=== PATIENT | female | born 1960 | race Caucasian/White ===

== ENCOUNTER 2022-08-15 05:43 | Inpatient (IN) ==
--- NOTE | 2022-08-03 09:52 | PAT Medication Instructions ---
Medication Instructions Date of Service August 03, 2022 Home Medications aspirin 325 mg tablet 325 mg PO QAM atorvastatin 40 mg tablet 40 mg PO HS calcium phosphate,dibasic 77 mg-vitamin D3 400 unit tablet 1 tab PO QAM clindamycin HCl 300 mg capsule 600 mg PO UD clopidogrel 75 mg tablet (Plavix) 75 mg PO QAM eszopiclone 2 mg tablet (Lunesta) 2 mg PO HS PRN Sleep ferrous sulfate 325 mg (65 mg iron) tablet (FeroSul) 325 mg PO QAM furosemide 20 mg tablet 20 mg PO QAM glipizide 5 mg tablet 5 mg PO BID losartan 50 mg tablet 50 mg PO QAM metoprolol tartrate 100 mg tablet 100 mg PO HS omega-3 fatty acids-vitamin E 1,000 mg capsule 2 cap PO BID pantoprazole 40 mg tablet,delayed release 40 mg PO QAM semaglutide 1 mg/dose (2 mg/1.5 mL) subcutaneous pen injector (Ozempic) 1 mg subcut WK spironolactone 50 mg tablet 50 mg PO QAM Continue as directed semaglutide 1 mg/dose (2 mg/1.5 mL) subcutaneous pen injector (Ozempic) 1 mg subcut WK clindamycin HCl 300 mg capsule 600 mg PO UD (prior to dental procedures) ASK your prescriber and surgeon aspirin 325 mg tablet 325 mg PO QAM clopidogrel 75 mg tablet (Plavix) 75 mg PO QAM DO NOT take the morning of surgery calcium phosphate,dibasic 77 mg-vitamin D3 400 unit tablet 1 tab PO QAM ferrous sulfate 325 mg (65 mg iron) tablet (FeroSul) 325 mg PO QAM furosemide 20 mg tablet 20 mg PO QAM glipizide 5 mg tablet 5 mg PO BID losartan 50 mg tablet 50 mg PO QAM spironolactone 50 mg tablet 50 mg PO QAM Take morning of surgery With a small sip of water, OTHERWISE NOTHING TO EAT OR DRINK AFTER MIDNIGHT: pantoprazole 40 mg tablet,delayed release 40 mg PO QAM Take evening before surgery atorvastatin 40 mg tablet 40 mg PO HS eszopiclone 2 mg tablet (Lunesta) 2 mg PO HS PRN Sleep (if needed) glipizide 5 mg tablet 5 mg PO BID metoprolol tartrate 100 mg tablet 100 mg PO HS Other Notes If you have any questions please call us at [phone] or [phone] or [phone] or [phone]
--- NOTE | 2022-08-08 09:01 | Anesthesiology Consultation ---
Date of Service August 08, 2022 Assessment & Plan (1) Encounter for pre-operative examination: - COVID screening: Per assessment on 08/08: No known COVID-19 positive contacts or current COVID-19 related symptoms. Travel screen negative. Patient vaccinated. At surgeon discretion if preop Covid testing being done. - Check BSG AM DOS - ASA/plavix instructions per surgeon/prescriber Chart Review Chart Review: Acceptable Risk for Surgery and Patient seen in Pre Admission Testing Teaching & Discussion Pre-Anesthesia Teaching/Discussion Notes: Instructed NPO after midnight before surgery,except medications with 15 cc of water. Medication instructions provided according to the PAT guidelines. History Surgery Operation Date: 08/15/22 08:00 Proposed Procedures p Right Transcarotid Artery Revascularization - Mane Wilkes MD Height/Weight Height: 5 ft 3 in Weight: 96.4 kg Allergies Allergy/AdvReac Type Severity Reaction Status Date / Time Cephalosporins Allergy Unknown Unknown Verified 08/02/22 14:37 Penicillins Allergy Unknown Unknown Verified 08/02/22 14:37 Medications Home Medications Medication Instructions Recorded Confirmed Last Taken aspirin 325 mg tablet 325 mg PO QAM 08/02/22 08/02/22 Unknown atorvastatin 40 mg tablet 40 mg PO HS 08/02/22 08/02/22 Unknown calcium phosphate,dibasic 77 1 tab PO QAM 08/02/22 08/02/22 Unknown mg-vitamin D3 400 unit tablet clindamycin HCl 300 mg capsule 600 mg PO UD 08/02/22 08/02/22 Unknown clopidogrel 75 mg tablet (Plavix) 75 mg PO QAM 08/02/22 08/02/22 Unknown eszopiclone 2 mg tablet (Lunesta) 2 mg PO HS PRN Sleep 08/02/22 08/02/22 Unknown ferrous sulfate 325 mg (65 mg 325 mg PO QAM 08/02/22 08/02/22 Unknown iron) tablet (FeroSul) furosemide 20 mg tablet 20 mg PO QAM 08/02/22 08/02/22 Unknown glipizide 5 mg tablet 5 mg PO BID 08/02/22 08/02/22 Unknown losartan 50 mg tablet 50 mg PO QAM 08/02/22 08/02/22 Unknown metoprolol tartrate 100 mg tablet 100 mg PO HS 08/02/22 08/02/22 Unknown omega-3 fatty acids-vitamin E 2 cap PO BID 08/02/22 08/02/22 Unknown 1,000 mg capsule pantoprazole 40 mg tablet,delayed 40 mg PO QAM 08/02/22 08/02/22 Unknown release semaglutide 1 mg/dose (2 mg/1.5 1 mg subcut WK 08/02/22 08/02/22 Unknown mL) subcutaneous pen injector (Ozempic) spironolactone 50 mg tablet 50 mg PO QAM 08/02/22 08/02/22 Unknown Past Medical History Medical History Carotid artery stenosis 75% proximal CARL stenosis, 56% proximal LICA stenosis per 05/2022 CTA neck Diabetes GERD (gastroesophageal reflux disease) Goiter HTN (hypertension) Exercise / Class Metabolic Activity II 4-5 Yardwork/Stairs/Walk up hill Past Family History Family History Other No family history of adverse response to anesthesia Past Surgical History Surgical History History of bilateral knee replacement History of open reduction and internal fixation (ORIF) procedure right leg, right arm Hx of cholecystectomy Hx of colonoscopy Hx of foot surgery right, bone spurs Hx of fusion of cervical spine C3-5 Hx of hysterectomy Hx of rotator cuff surgery right Past Anesthesia History No Hx of Anesthesia Complications and No Family Hx of Anesthesia Complications *Preop nausea prior to previous knee surgery* History of PONV No Hx of PONV and No Hx of Motion Sickness Social History Smoking Status: Never smoker Do You Dip or Chew Tobacco: No Hx Alcohol Use: Yes alcohol intake frequency: holidays/special occasions only Hx Substance Use: No substance use type: does not use Review of Systems Patient denies chest pain, shortness of breath, dyspnea on exertion, fever, chills, cough, wheezing, palpitations. Physical Exam Vital Signs VITALS BP 127/83 P 80 TEMP 98.1 SP02 97%RA RESP 16 PHYSICAL Full cervical extension range of motion. Full TMJ range of motion. TMD 4 finger breaths Mallampati Score 2 Dentition: several missing molars, + caps Lungs: clear throughout to auscultation Cardiac: regular rate and rhythm, no murmurs noted Spine: normal Carotid arteries: negative bruit Extremities: RLE swelling (chronic issue s/p surgery per patient) Lab Results Anesthesia Preop Results Results Anesthesia Widget: PT 10.1 Seconds (9.0-12.0) 08/08/22 PTT 25.1 Seconds (21.0-31.0) 08/08/22 INR 0.9 (0.9-1.1) 08/08/22 Blood Type O Positive 08/08/22 Antibody Screen NEGATIVE 08/08/22 Testing Laboratory Results 07/28/22 WBC 8.9 H/H 15.0/45.4 PLATELETS 437 SODIUM 137 POTASSIUM 4.7 CHLORIDE 102 CO2 29 BUN 30 CREATININE 1.4 GLUCOSE 97 HGBA1C 6.0% Electrocardiogram Date: 10/15/21 NSR at 64bpm. Moderate voltage criteria for LVH. Chest X-Ray Date: 10/15/21 No acute cardiac or pulmonary disease and no change from the comparison examination. ACDF hardware noted in the lower cervical spine. Echocardiogram Date: 06/11/20 EF 55-60%. No regional motion abnormality. No significant valvular disease. Stress Test Date: 06/11/20 Type: nuclear Based upon EKG criteria, this test is negative. Based upon nuclear imaging findings, there is no evidence of myocardial ischemia or infarction. Study is "normal " Other Testing Carotid ultrasound (06/07/22) CARL greater than 70% stenosis. LICA less than 50% stenosis. Neck CTA (06/19/22) 75% proximal CARL stenosis 56% proximal LICA stenosis Unremarkable common carotid arteries and vertebral areries. COVID-19 Risk Screen Screening Information COVID-19 Screen Date: 08/08/22 Exposure 21 Days Family/Household +COVID Last 21 Days: No Exposure 10 Days Any COVID Exposure Last 10 Days: No Symptoms Last 10 Days Experienced COVID Sx Last 10 Days: No + COVID 0-90 Days COVID + in Last 0-90 Days: No
[2022-08-15] MEDS ORDERED: CLINDAMYCIN/D5W 900 MG/50 ML BAG IV SCH (06:00)
[2022-08-15] MEDS ORDERED: SODIUM CHLORIDE 0.9% 1000ML 1,000 ML IV SCH (06:00)
[2022-08-15 06:38] LABS: BUN Creatinine Ratio 22.6 (10-20); Calcium 9.8 mg/dl (8.5-10.1); Creatinine Clr Calc Pharmacy 39.5 ml/min; Est GFR (African American) 39.4 ml/min
[2022-08-15] MEDS ORDERED: ePHEDrine sulfate 50 MG/ML AMP IV PRN (06:39)
[2022-08-15] MEDS ORDERED: ONDANSETRON INJ 2 MG/ML 2 ML VIAL IV PRN (06:39)
[2022-08-15] MEDS ORDERED: fentaNYL citrate PF 100 MCG/2 ML VIAL IV PRN (06:39)
[2022-08-15] MEDS ORDERED: ATROPINE SULFATE 0.1 MG/ML 10ML SYR IV PRN (06:39)
[2022-08-15 06:52] LABS: INR 0.9 (0.9-1.1); Partial Thromboplastin Ratio 0.9
[2022-08-15] MEDS ORDERED: fentaNYL citrate PF 100 MCG/2 ML VIAL ONE (07:04)
[2022-08-15] MEDS ORDERED: THROMBIN FOR SOLN 20000 UNIT KIT ONE (07:09)
[2022-08-15] MEDS ORDERED: BUPIVACAINE/EPINEPHRINE 0.5% MPF 1:200,000 30 ML VIAL ONE (07:09)
[2022-08-15] MEDS ORDERED: HEPARIN (PORCINE) 1000 UNIT/ML 10 ML (CATH LAB USE ONLY) ONE (07:10)
[2022-08-15] MEDS ORDERED: GELATIN SPONGE SZ 100 ONE (07:10)
--- NOTE | 2022-08-15 07:30 | History & Physical Bridge Note ---
Date of Service August 15, 2022 History & Physical Bridge Note I have examined the patient, reviewed the History & Physical and in the interval since the performance of the History & Physical I have noted the following changes of clinical significance: no changes noted
--- NOTE | 2022-08-15 07:30 | History & Physical Report ---
Date of Service August 15, 2022 History of Present Illness Primary Care Provider: Gladis Carreon DO Name: KARLA JUNG Patient Number: [id number] : 1960 Date of Service: 07/27/2022 Chief Complaint: _New patient consultation for carotid stenosis HPI: _Ms. Jung is a middle-aged female who presents to Dr. Wilkes's vascular surgery clinic today as a new patient in consultation for right ICA stenosis noted on recent imaging. Patient states that she saw her lease out man last year, who ordered a carotid ultrasound which noted some mild to moderate stenosis. She is that she was sent for reevaluation more recently and was advised that it was significantly different than the previous test. She was then sent for a CTA of the neck to further evaluate. This demonstrated a significant stenosis and she was referred to our office for evaluation. Patient does admit some mild lower extremity edema, particularly since undergoing her knee replacements. She also states to having some occasional posterior neck and headaches. Patient denies any symptoms of cerebrovascular insufficiency, including amaurosis, extremity weakness numbness or tingling, difficulty speaking or swallowing, facial droop, sudden onset confusion. She also denies fevers, chest pain, shortness of breath, abdominal pain, nausea, vomiting, rest pain, claudication, nonhealing wounds or ulcers, other complaints. Review of systems: Total of 14 systems were reviewed and are negative aside from what is related in her HPI. Imaging: Ultrasound imaging performed at [facility] on 06/07/2022 demonstrates 80 to 99% stenosis of her right ICA, with end-diastolic velocities of over 100 cm/s. CTA performed at [facility] on 06/19/2022 demonstrates 90% stenosis of her right ICA. Current Home Meds: (Last Updated 07/27 10:07) acetaminophen (Tylenol 500 mg oral tablet) 1,000 mg PO q6h PRN: as needed for pain aspirin (aspirin 325 mg oral delayed release tablet) 325 mg PO Daily atorvastatin (atorvastatin 40 mg oral tablet) 40 mg PO Daily clopidogrel (Plavix 75 mg oral tablet) 75 mg PO Daily eszopiclone (eszopiclone 2 mg oral tablet) 2 mg PO qhs PRN: as needed for insomnia ferrous sulfate (Feosol 325 mg (65 mg elemental iron) oral tablet) 325 mg PO Daily furosemide (furosemide 20 mg oral tablet) 20 mg PO Daily glipiZIDE (glipiZIDE 5 mg oral tablet) 5 mg PO bid losartan (losartan 50 mg oral tablet) 50 mg PO Daily metoprolol (metoprolol succinate 100 mg oral tablet, extended release) 100 mg PO qhs omega-3 polyunsaturated fatty acids (EPA Fish Oil 1000 mg oral capsule) 2 cap po bid pantoprazole (pantoprazole 40 mg oral delayed release tablet) 40 mg PO Daily semaglutide (Ozempic (1 mg dose) 4 mg/3 mL subQ pen) 1 mg subQ q7days spironolactone (spironolactone 50 mg oral tablet) 50 mg PO Daily Allergies and Sensitivities: cephalosporins(Unknown) penicillin(Unknown) Past Medical History: Problems: Carotid stenosis, right Heart murmur Hypertension Type 2 diabetes mellitus Chronic kidney disease Arthritis Insomnia Anemia Hyperlipidemia Varicose veins Surgical history: Positive for cholecystectomy, shoulder arthroscopy, total hysterectomy, leg surgery, foot surgery, bilateral total knee arthroplasties, varicose vein surgery Family history: Father with CVA and abdominal aortic aneurysm requiring surgical repair. Patient states that she underwent an ultrasound for screening about 2 years ago which was negative for aneurysm. Her family history is also positive for kidney disease, cancer, hypertension, coronary disease. Social history: Patient is a lifelong non-smoker. She has an alcoholic beverage once or twice per month. She denies any illicit drug use. OBJECTIVE Vitals: Last Updated 07/27/22 09:13 Date Temp BP Location Pulse RR SpO2 Pain 07/27/22 126/74 Right Arm 07/27/22 126/74 Left Arm 82 97 07/27/22 0 Vital Signs are the last 3 documented. No Orthostatic Data Available Height and Weight: Last Updated 07/27/22 09:12 Date BMI Wt(kg) Wt(lb) Method Ht(cm) (ft-in) Method 07/27/22 96.8 213 Standing Scale Heights and Weights are the last 3 documented. Physical Exam Constitutional: In general patient is a overweight but healthy-appearing well- nourished well-developed middle-aged female in no distress. She is alert and oriented without any focal deficits. Her neck is supple nontender with a midline trachea. She does have a faint bruit over the right side. Her heart is regular with a systolic ejection murmur. Her lungs are clear throughout. Her abdomen is soft nontender with normoactive bowel sounds all 4 quadrants. Brachial radial and femoral pulses are +3. Lower extremity distal pulses are +2. She does have well-healed anterior knee surgical scars. She has +1 to +2 edema of the lower extremities. ASSESSMENT: _ PLAN: _ 1 ) _right internal carotid artery stenosis Patient is asymptomatic from the severe right ICA S noted on her ultrasound as well as the CTA. Procedures for surgical correction of this were discussed with the patient due to her significantly increased risk of CVA, including carotid endarterectomy versus transcarotid artery revascularization. Both procedures were discussed at length with the patient including the risks benefits and alternatives to each. Patient elects to proceed with TCAR on the right carotid artery. The procedure risks benefits and alternatives were discussed with the patient by myself at Dr. Wilkes's request. Patient expresses understanding and agreement to proceed. This will occur at the patient's convenience. She is already taking statin medication as well as 325 mg aspirin daily, we will add Plavix to this regimen in preparation for her stenting procedure. Patient is aware that she will require this medication for 1 year postoperatively. Thank you for letting us participate in the care of this patient. Signature Line Electronic Signature on File CC: Estefania Hamm, [place] [id number] [place] [address] * CC: Gladis Carreon, [place] [id number] * Electronically Reviewed/Signed by: Fawn Cain PA-C Author Signature Dt/Tm:07/27/2022 03:04 PM [facility] [address] [id number] Electronically Reviewed/Signed by: MD Malinda Yap Signature Dt/Tm: 07/28/2022 08:42 AM Asset Administrator Vito Nava [facility] [address] [id number] LM Result Type: HVI Outpt Note Date of Service: July 27, 2022 14:54 EST Authorization Status: Final Author or Import Date: MARIANO Cain, Fawn on July 27, 2022 15:04 EST Verified By: MD Chung, Mane conti July 28, 2022 08:42 EST Encounter info: [id number], [facility], Clinic, 07/27/2022 - 07/27/2022 Allergies Allergy/AdvReac Type Severity Reaction Status Date / Time Cephalosporins Allergy Unknown Unknown Verified 08/02/22 14:37 Penicillins Allergy Unknown Unknown Verified 08/02/22 14:37 Home Medications Medication Instructions Recorded Confirmed Type aspirin 325 mg tablet 325 mg PO QAM 08/02/22 08/15/22 History atorvastatin 40 mg tablet 40 mg PO HS 08/02/22 08/15/22 History calcium phosphate,dibasic 77 1 tab PO QAM 08/02/22 08/15/22 History mg-vitamin D3 400 unit tablet clindamycin HCl 300 mg capsule 600 mg PO UD 08/02/22 08/15/22 History clopidogrel 75 mg tablet (Plavix) 75 mg PO QAM 08/02/22 08/15/22 History eszopiclone 2 mg tablet (Lunesta) 2 mg PO HS PRN Sleep 08/02/22 08/15/22 History ferrous sulfate 325 mg (65 mg 325 mg PO QAM 08/02/22 08/15/22 History iron) tablet (FeroSul) furosemide 20 mg tablet 20 mg PO QAM 08/02/22 08/15/22 History glipizide 5 mg tablet 5 mg PO BID 08/02/22 08/15/22 History losartan 50 mg tablet 50 mg PO QAM 08/02/22 08/15/22 History metoprolol tartrate 100 mg tablet 100 mg PO HS 08/02/22 08/15/22 History omega-3 fatty acids-vitamin E 2 cap PO BID 08/02/22 08/15/22 History 1,000 mg capsule pantoprazole 40 mg tablet,delayed 40 mg PO QAM 08/02/22 08/15/22 History release semaglutide 1 mg/dose (2 mg/1.5 1 mg subcut WK 08/02/22 08/15/22 History mL) subcutaneous pen injector (Ozempic) spironolactone 50 mg tablet 50 mg PO QAM 08/02/22 08/15/22 History Past Med/Surg History Medical History Carotid artery stenosis 75% proximal CARL stenosis, 56% proximal LICA stenosis per 05/2022 CTA neck Diabetes GERD (gastroesophageal reflux disease) Goiter HTN (hypertension) Surgical History History of bilateral knee replacement History of open reduction and internal fixation (ORIF) procedure right leg, right arm Hx of cholecystectomy Hx of colonoscopy Hx of foot surgery right, bone spurs Hx of fusion of cervical spine C3-5 Hx of hysterectomy Hx of rotator cuff surgery right Family History Other No family history of adverse response to anesthesia Social History Smoking Status: Never smoker Second Hand Exposure: No; Do You Dip or Chew Tobacco: No; Tobacco Cessation Education Requested by Patient: No Hx Alcohol Use: Yes Hx Substance Use: No Preferred Language: Mauritian Communication Ability: Effective Crate Repairer Required: No Beliefs That Will Affect Care: None Current Living Situation: Spouse Other Information That Helps Us Care for You: No Feels Safe at Home: Yes Safety Concerns: Feels Safe At This Time Assistive Devices: Glasses Results & Data Vital Signs (Past 12 Hours) Vital Signs Temp Resp BP BP Pulse Ox O2 Del Method 08/15/22 06:08 36.8 C 16 147/79 H 147/88 H 98 Room Air
[2022-08-15] MEDS ORDERED: PROPOFOL IV EMULSION 10 MG/ML 20 ML VIAL IV ONE ×2 (07:36→09:07)
[2022-08-15] MEDS ORDERED: ROCURONIUM BROMIDE 10 MG/ML 5 ML VIAL IV ONE ×5 (09:08)
[2022-08-15] MEDS ORDERED: HEPARIN SOD (PORCINE) 1000 UNIT/ML ONE (09:08)
[2022-08-15] MEDS ORDERED: NITROGLYCERIN 5 MG/ML 10 ML VIAL ONE (09:08)
[2022-08-15] MEDS ORDERED: LIDOCAINE 2% MPF LOCAL 5 ML VIAL INFIL ONE (09:08)
[2022-08-15] MEDS ORDERED: PHENYLEPHRINE HCL 10 MG/ML VIAL ONE (09:08)
[2022-08-15] MEDS ORDERED: ONDANSETRON INJ 2 MG/ML 2 ML VIAL ONE (09:09)
[2022-08-15] MEDS ORDERED: DEXAMETHASONE SOD INJ 4 MG/ML VIAL ONE (09:09)
[2022-08-15] MEDS ORDERED: GLYCOPYRROLATE 0.2 MG/ML VIAL ONE (09:09)
[2022-08-15] MEDS ORDERED: PROTAMINE SULFATE 10 MG/ML 5 ML VIAL IV ONE (09:11)
[2022-08-15] MEDS ORDERED: SUGAMMADEX SODIUM 200 MG/2 ML VIAL IV ONE (09:12)
[2022-08-15] MEDS ORDERED: VISIPAQUE IV ONE (09:31)
--- NOTE | 2022-08-15 09:35 | Procedure Note ---
Angiogram Post Procedure Fluoroscopy Time (minutes): 2.7 Radiation (mGy): 25 Contrast: 15 Post Operative Report Pre & Post Diagnosis Operation Date: 08/15/22 08:00 Pre-Op Diagnosis: Right Internal Carotid Artery Stenosis Post-Op Diagnosis: Right Internal Carotid Artery Stenosis I identified the patient and participated in the time-out.: Yes Procedure Operation Date: 08/15/22 08:00 Actual Procedures p Right Transcarotid Artery Revascularization(Right), Ultrasound localization of right femoral vein - Mane Wilkes MD Surgeon Mane Wilkes MD Agricultural Equipment Salesperson [place],PAC Estimated Blood Loss 20 Findings Consistent with Post-Op Diagnosis Specimens none Anesthesia Type General Complications none Disposition Accompanied Patient To Recovery: No Disposition: Recovery Room Indications This is a 62-year-old female's been followed for carotid artery disease by her health plan manager. The recent study showed significant increase in stenosis of the right carotid. This was confirmed by CT angiography. Intervention was recommended. We went over the risks options and benefi Description of Procedure The patient was taken to the operating room and placed in supine position. After general anesthesia was accomplished the groins and right side of the neck and chest were prepped and draped in a sterile manner. A timeout was performed and the patient was identified. A transverse incision was made just above the clavicle between the heads of the sternocleidomastoid. This was carried down to where the common carotid artery was identified. It was isolated and slung with an umbilical tape. It was given 8000units of heparin at that time. Ultrasound was then used to localize the left common femoral vein. The vein was patent and compressed easily. Under ultrasound guidance the left common femoral vein was punctured and the venous sheath was inserted. This was aspirated and flushed with heparinized saline. An ACT at that time was 293. Using micropuncture technique the common carotid artery was punctured through a separate stab wound on the chest and tunneled into the wound. The micro sheath was inserted to 3 cm. Injection was then done showing the bifurcation. There was a significant lesion seen at the origin of the internal carotid artery on the right side. We then inserted the J-wire and keep it short of the bifurcation of the carotid artery. The TCAR sheath was inserted and advanced to 2.5cm. Once it was in place it was sutured to the chest wall and the incision edge. We then flushed the tubing appropriately. The venous return tubing was clamped onto the TCAR sheath. It was flushed through and then attached to the venous inflow sheath in the left groin. The sheath was checked for flow. We then inserted a 5 x 3 balloon backloaded on the wire. The wire was passed through the lesion into the petrous portion of the internal carotid. The 5 balloon was then advanced to the lesion. The lesion was then predilated with the 5 mm balloon. The balloon was removed. We then inserted the 9 x 30 stent. This was deployed across the lesion without difficulty. The catheter was removed. The carotid was allowed to go 2 minutes with flow reversal. Completion angiogram was done at that time which showed a moderate residual stenosis. We post ballooned the stent with the 5 x 3 balloon with good results. Again after the angio was done and the wire was removed we allowed 2 minutes of flow reversal to occur. A that point the common carotid artery was unclamped. The venous return tubing was clamped and removed from the TCAR sheath. The blood was allowed to flow back into the venous system. Once this was completed the sheath was pulled from the groin and pressure was applied. The TCAR sheath was then removed and the 5-0 Prolene suture securely tied. Hemostasis was noted of the puncture site. Wound was irr igated with saline solution. Adequate hemostasis was obtained of the wound. Once this was noted the wound was closed in usual fashion using a 3-0 Vicryl suture for the subcutaneous layer and a 4-0 subcuticular Vicryl suture for the skin edges. Dermabond was used for dressing.The patient left the operation room in satisfactory condition and tolerated the procedure well. All needle and sponge counts were correct at the end of the procedure. Fawn Cain Pac assisted due to lack of resident availability and was necessary for positioning, draping, retraction, wound closure deep layers, sub cutaneous tissue, and skin closure and was necessary for assisting with the case. I attest to the content of the Intraoperative Record and any orders documented therein. Any exceptions are noted below.
[2022-08-15] MEDS ORDERED: GELATIN SPONGE 12-7MM ONE (10:51)
--- NOTE | 2022-08-15 11:04 | Anesthesiology Progress Note ---
Date of Service August 15, 2022 Anesthesia Post Procedure Vital Signs Vital Signs: Temp Pulse Pulse Resp BP BP BP 08/15/22 10:45 97.0 F L 85 12 155/75 H 129/99 08/15/22 10:35 97.0 F L 84 13 154/73 H 149/88 H 08/15/22 10:30 84 12 157/77 H 139/95 08/15/22 10:20 89 21 158/74 H 153/87 H 08/15/22 10:10 94 H 22 166/80 H 143/85 H 08/15/22 10:00 90 16 135/91 08/15/22 09:50 96.8 F L 104 H 13 151/84 H 08/15/22 06:08 98.2 F 16 147/79 H 147/88 H Pulse Ox O2 Del Method O2 Flow Rate 08/15/22 10:45 96 Room Air 08/15/22 10:35 98 Room Air 08/15/22 10:30 100 Room Air 0 08/15/22 10:20 99 Room Air 0 08/15/22 10:10 99 Room Air 0 08/15/22 10:00 100 Room Air 0 08/15/22 09:50 100 Oxymask 6 08/15/22 06:08 98 Room Air Transfer of Care Handoff Completed per policy Notes Mental Status: alert / awake / arousable and participated in evaluation Patient Amnestic to Procedure: Yes Nausea / Vomiting: adequately controlled Pain: adequately controlled Airway Patency, RR, SpO2: stable & adequate BP & HR: stable & adequate Hydration State: stable & adequate Anesthetic Complications: no major complications apparent and Pt Satisfied with anesthetic care
[2022-08-15] MEDS ORDERED: oxyCODONE/ACETAMINOPHEN 5mg/325mg TAB PO PRN (12:04)
[2022-08-15] MEDS ORDERED: LACTATED RINGER'S 1,000 ML IV SCH (12:04)
[2022-08-15] MEDS ORDERED: ESZOPICLONE 1 MG TAB PO PRN ×2 (12:22→12:23)
[2022-08-15] MEDS ORDERED: LOSARTAN POTASSIUM 50 MG TAB PO SCH (14:45)
--- NOTE | 2022-08-15 15:18 | Critical Care Consultation ---
Date of Consultation August 15, 2022 Assessment & Plan (1) Carotid artery stenosis: (2) Diabetes: (3) GERD (gastroesophageal reflux disease): (4) HTN (hypertension): (5) Chronic kidney disease: (6) Hyperlipidemia: (7) Anemia: (8) Arthritis: (9) Insomnia: Plan Reason: Critically Ill, 62 year old female with history of right carotid stenosis, heart murmur, HTN, T2DM, CKD, arthritis, insomnia, anemia, HLD, and varicose veins who presented for TCAR (right) with Dr. Wilkes and is now admitted to ICU for post-procedure care. Procedure was performed today at 9 AM and there were no complications. Neuro - No acute issues, Insomnia * CAM ICU: Neg * Sedation: None, s/p anesthesia * Analgesia: Percocet * Insomnia: Home Lunesta ordered Cardiac - Hypertension, Hx of Heart Murmur, Hyperlipidemia * Hx of HTN: continue Losartan 50 mg qAM, Spirinolactone 50mg qAM, Metoprolol 100 mg HS, and Furosemide 20 mg QAM * Echocardiogram 2020: EF 55-60%, mild aortic valve sclerosis, mild mitral valve thickening and annular calcification, normal pulmonic and tricuspid valves, trace tricuspid/mitral/pulmonary insufficiency * TCAR 08/15 w/o complication: BP management per vascular surgery protocol * Heart Murmur: chronic systolic murmur, undifferentiated, no supporting information from recent 2020 Echo (per patient) * Hyperlipidemia: Continue home statin Respiratory - No acute issues or chronic history * Currently oxygenating well on room air w/o dyspnea or pleuritic pain GI - GERD * Hx of GERD: continue home Pantoprazole 40 mg qAM * Heart health/Carb consistent diet ordered Renal/Electrolytes -CKD * BUN 36/ Cr 1.59/ GFR 34 (unknown baseline) * LR ongoing at 125 ml/hr * Trend CMP * Replace electrolytes PRN - No acute concerns * Monitor I&O * Independent voids ENDO - T2DM * T2DM: Managed at home with Glipizide 5 mg BID and Semaglutide injections 1 mg weekly * Follow ICU hyperglycemic protocols HEME - No acute concerns, hx of Anemia * Recent endovascular surgery * No recent CMP, AM lab ordered * Will monitor for any drops in setting of recent surgery ID - Post Surgical Ppx * No concerns for infection at this point * Patient remains afebrile * Continue prophylactic Clindamycin per vascular surgery INTEGUMENTARY - Endovascular surgical site * Surgical site clean and dry w/ appropriate hemostasis LINES/IV ACCESS * L radial a-line intact DVT PROPHYLAXIS * Held in setting of recent endovascular procedure * Continue Aspirin and Clopidogrel Thank you for allowing us to be part of this patient's care. Please refer to Dr. Chester's documentation for any further recommendations Supervising Physician Co-Signing Physician Notes Dr. Hollingsworth was the resident-physician during care of patient. I separately evaluated patient for oconnell portions of the history and the exam. I was present during the critical portion of medical decision making, and I discussed the case with the resident. I generally agree with the findings and plan except for any additions/exceptions noted. 62-year-old female with past medical history of right carotid artery stenosis, hypertension, diabetes, CKD, dyslipidemia came to the hospital for TCAR. Patient was sent to the ICU for postprocedure monitoring. At the time of examination patient had left radial line in place. Systolic blood pressure was in the 150s to 160s. Patient denies any issues when it comes to her breathing. No chest pain, no headache, no nausea vomiting Patient just finished her lunch. No difficulty swallowing No headache, no blurry vision Constitutional: No acute distress HEENT: EOMI, PERRLA, right suprasternal anterior neck scar present Respiratory system: Good air entry bilaterally, no wheeze, no rhonchi, no crackles CVS: S1-S2 positive, 2 out of 6 systolic murmur appreciated best at aorta Abdomen: Soft, nontender, nondistended, positive bowel sounds x4 Extremities: +2 pulses bilaterally radialis/ dorsalis pedis, no cyanosis, no edema Neuro: Awake alert oriented x3 Psych: Normal mood and affect G/U: No Farah --Prophylaxis VTE: IPC GI: Pantoprazole Lines: Peripheral, left radial Diet: Cardiac Plan: Monitor blood pressure Patient blood pressure was on the higher side, she did not take her losartan today. We will give 1 dose now. She is supposed to have metoprolol at night cleaner for signs for bleeding. ICU hypoglycemia protocol Please note the above document was generated using voice recognition software. It may contain grammatical, syntax or spelling errors.Any formal questions or concerns about the content, text or information contained within the body of this dictation should be directly addressed to the provider for clarification. History of Present Illness Reason for Consultation: S/p TCAR (R) Requesting Physician: Mane Wilkes MD Attending Physician: Mane Wilkes MD History of Present Illness Maira is a 62 year old female with history of right carotid stenosis, heart murmur, HTN, T2DM, CKD, arthritis, insomnia, anemia, HLD, and varicose veins who presented for TCAR (right) with Dr. Wilkes and is now admitted to ICU for post- procedure care. Procedure was performed today at 9 AM and there were no complications. Patient notes that she is feeling well and is only in mild discomfort, she describes a 3/10 pain at her neck. She endorses some discomfort in her throat that has been ongoing since intubation, but states that this has been improving throughout the afternoon. Patient denies any chest pain, dyspnea, abdominal pain, headaches, lightheadedness, vision changes, or lower extremity discomfort. She notes that she is urinating independently and has been up to use the toilet, she is not passing gas at this time. Patient notes that her heart murmur has been present for many years and that she follows with Cardiology (in [place]) who found nothing remarkable on Echocardiogram (per patient). Patient notes a diagnosis of T2DM, she is currentl y managed with Glipizide and Semaglutide at home, her last A1c was 6.3 (2 weeks prior). Medications: Reviewed Allergies: Reviewed (Cephalosporins, Penicillins) Allergies Allergy/AdvReac Type Severity Reaction Status Date / Time Cephalosporins Allergy Unknown Unknown Verified 08/02/22 14:37 Penicillins Allergy Unknown Unknown Verified 08/02/22 14:37 Home Medications Medication Instructions Recorded Confirmed Type aspirin 325 mg tablet 325 mg PO QAM 08/02/22 08/15/22 History atorvastatin 40 mg tablet 40 mg PO HS 08/02/22 08/15/22 History calcium phosphate,dibasic 77 1 tab PO QAM 08/02/22 08/15/22 History mg-vitamin D3 400 unit tablet clindamycin HCl 300 mg capsule 600 mg PO UD 08/02/22 08/15/22 History clopidogrel 75 mg tablet (Plavix) 75 mg PO QAM 08/02/22 08/15/22 History eszopiclone 2 mg tablet (Lunesta) 2 mg PO HS PRN Sleep 08/02/22 08/15/22 History ferrous sulfate 325 mg (65 mg 325 mg PO QAM 08/02/22 08/15/22 History iron) tablet (FeroSul) furosemide 20 mg tablet 20 mg PO QAM 08/02/22 08/15/22 History glipizide 5 mg tablet 5 mg PO BID 08/02/22 08/15/22 History losartan 50 mg tablet 50 mg PO QAM 08/02/22 08/15/22 History metoprolol tartrate 100 mg tablet 100 mg PO HS 08/02/22 08/15/22 History omega-3 fatty acids-vitamin E 2 cap PO BID 08/02/22 08/15/22 History 1,000 mg capsule pantoprazole 40 mg tablet,delayed 40 mg PO QAM 08/02/22 08/15/22 History release semaglutide 1 mg/dose (2 mg/1.5 1 mg subcut WK 08/02/22 08/15/22 History mL) subcutaneous pen injector (Ozempic) spironolactone 50 mg tablet 50 mg PO QAM 08/02/22 08/15/22 History Patient History Medical History (Updated 08/15/22 @ 14:53 by Keven Hollingsworth DO) Carotid artery stenosis 75% proximal CARL stenosis, 56% proximal LICA stenosis per 05/2022 CTA neck Diabetes GERD (gastroesophageal reflux disease) Goiter HTN (hypertension) Surgical History History of bilateral knee replacement History of open reduction and internal fixation (ORIF) procedure right leg, right arm Hx of cholecystectomy Hx of colonoscopy Hx of foot surgery right, bone spurs Hx of fusion of cervical spine C3-5 Hx of hysterectomy Hx of rotator cuff surgery right Family History Other No family history of adverse response to anesthesia Social History Smoking Status: Never smoker Second Hand Exposure: No; Do You Dip or Chew Tobacco: No; Tobacco Cessation Education Requested by Patient: No Hx Alcohol Use: Yes Hx Substance Use: No Preferred Language: Romanian Communication Ability: Effective Core Cutter And Reamer Required: No Beliefs That Will Affect Care: None Current Living Situation: Spouse Other Information That Helps Us Care for You: No Feels Safe at Home: Yes Safety Concerns: Feels Safe At This Time Assistive Devices: None Review of Systems Review of Systems: As per HPI Physical Exam Physical Exam: Gen: NAD, alert, interactive HEENT: Supple, no LAD, no thyromegaly, no JVD Neck: Surgical bandage intact, surrounding superior ecchymosis, clean and dry w/o erythema or purulence Resp:Non-labored, no wheezing/rhonchi/rales, CTAB CV:RRR, normal S1/S2, systolic murmur, no rubs or gallops Abd: Soft, non-distended, no TTP, normoactive bowels, no masses Extr: 2+ dp bilaterally, no edema Skin: No rashes lesions or erythema Results & Data Results & Data Vital Signs (Past 12 Hours) Vital Signs Temp Pulse Pulse Pulse Resp BP BP 08/15/22 12:00 36.6 C 08/15/22 12:30 85 14 08/15/22 12:15 88 20 08/15/22 12:01 147/66 H 08/15/22 12:01 87 12 08/15/22 12:00 83 13 08/15/22 11:45 87 12 08/15/22 11:38 86 19 08/15/22 11:38 155/93 H 08/15/22 11:30 89 16 08/15/22 11:21 89 12 08/15/22 11:21 156/83 H 08/15/22 11:20 88 20 08/15/22 12:11 08/15/22 10:45 36.1 C L 85 12 08/15/22 10:35 36.1 C L 84 13 08/15/22 10:30 84 12 08/15/22 10:20 89 21 08/15/22 10:10 94 H 22 08/15/22 10:00 90 16 08/15/22 09:50 36.0 C L 104 H 13 08/15/22 06:08 36.8 C 16 147/79 H BP BP Pulse Ox O2 Del Method O2 Flow Rate 08/15/22 12:00 08/15/22 12:30 98 08/15/22 12:15 96 Room Air 08/15/22 12:01 08/15/22 12:01 96 08/15/22 12:00 97 08/15/22 11:45 95 08/15/22 11:38 98 08/15/22 11:38 08/15/22 11:30 97 08/15/22 11:21 08/15/22 11:21 08/15/22 11:20 08/15/22 12:11 Room Air 08/15/22 10:45 155/75 H 129/99 96 Room Air 08/15/22 10:35 154/73 H 149/88 H 98 Room Air 08/15/22 10:30 157/77 H 139/95 100 Room Air 0 08/15/22 10:20 158/74 H 153/87 H 99 Room Air 0 08/15/22 10:10 166/80 H 143/85 H 99 Room Air 0 08/15/22 10:00 135/91 100 Room Air 0 08/15/22 09:50 151/84 H 100 Oxymask 6 08/15/22 06:08 147/88 H 98 Room Air Resident Activity Tracking Resident Involvement: Resident Care Provided Care Provided: Adult Hospital Medicine
[2022-08-15] MEDS: glipiZIDE 5 MG TAB PO SCH (16:16)
[2022-08-15] MEDS: CLINDAMYCIN/D5W 900 MG/50 ML BAG IV SCH ×2 (16:16→22:57)
--- NOTE | 2022-08-15 16:56 | Billing Data ---
Date of Service August 15, 2022 Coding Level of Care Code 72937 INT INP/OBS CARE
[2022-08-15] MEDS ORDERED: NON-FORMULARY MEDICATION (Omega-3 Fatty Acids-Vitamin E 1,000 mg Capsule) PO SCH (21:00)
[2022-08-15] MEDS ORDERED: METOPROLOL TARTRATE 100 MG TAB PO SCH (21:00)
[2022-08-15] MEDS ORDERED: ATORVASTATIN 40 MG TAB PO SCH (21:00)
[2022-08-16] MEDS: CLINDAMYCIN/D5W 900 MG/50 ML BAG IV SCH (08:18)
[2022-08-16] MEDS: SPIRONOLACTONE 25 MG TAB PO SCH ×2 (08:18→08:32)
[2022-08-16] MEDS: glipiZIDE 5 MG TAB PO SCH (08:18)
[2022-08-16] MEDS: FUROSEMIDE 20 MG TAB PO SCH ×2 (08:19→08:32)
--- NOTE | 2022-08-16 08:28 | Surgery Progress Note ---
Date of Service August 16, 2022 Assessment & Plan (1) Internal carotid artery stent present: Plan: Patient POD 1 from right tcar procedure. Doing well. Neuro intact. D/C home today. Admission and Anticipated Discharge Date Admission Date: August 15, 2022 Subjective Patient only complaint is slight discomfort at the incision site. No focal neuro complaints. Physical Exam Constitutional: well developed and well nourished up in chair eating Neck: trachea midline Respiratory: normal respiratory effort; no respiratory distress Cardiovascular: Rate/Rhythm: regular rate and regular rhythm Gastrointestinal (Abdomen): Inspection/Auscultation: abdomen normal to i nspection Percussion/Palpation: abdomen soft Musculoskeletal: no cyanosis or clubbing, extremities motor strength 5/5 Skin: + incision (incision dry and clean, slight ecchymosis, no swelling) Neurologic: CN's II-XI intact bilaterally, normal sensation to monofilament and moves all extremities Psychiatric: Orientation: alert and oriented x 3 Results & Data Vital Signs (Past 12 Hours) Vital Signs Temp Pulse Resp BP Pulse Ox O2 Del Method 08/16/22 08:15 73 22 96 08/16/22 08:00 69 16 94 08/16/22 07:45 77 19 94 08/16/22 07:30 65 19 97 08/16/22 07:15 57 L 15 95 08/16/22 07:00 61 13 96 Room Air 08/16/22 07:00 110/59 L 08/16/22 06:52 66 08/16/22 06:20 67 14 96 08/16/22 06:10 70 15 96 08/16/22 06:00 63 15 92 08/16/22 06:00 113/71 08/16/22 05:50 56 L 15 96 08/16/22 05:40 57 L 15 94 08/16/22 05:30 55 L 14 95 08/16/22 05:20 56 L 15 95 08/16/22 05:10 60 14 94 08/16/22 05:00 61 16 94 08/16/22 05:00 97/58 L 08/16/22 04:50 67 14 95 08/16/22 04:40 75 21 96 08/16/22 04:30 58 L 5 L 96 08/16/22 04:20 65 15 94 08/16/22 04:10 55 L 14 95 08/16/22 04:01 65 16 98 08/16/22 04:01 96/55 L 08/16/22 04:00 59 L 14 96 08/16/22 03:50 56 L 14 96 08/16/22 03:40 67 15 92 08/16/22 03:30 54 L 14 97 08/16/22 03:20 59 L 16 94 08/16/22 03:10 67 11 L 94 08/16/22 03:01 113/52 L 08/16/22 03:01 73 17 94 08/16/22 03:00 64 17 95 08/16/22 02:50 61 15 96 08/16/22 02:40 59 L 18 95 08/16/22 02:30 60 17 96 08/16/22 02:20 62 14 97 08/16/22 02:10 61 17 96 08/16/22 02:02 65 17 96 08/16/22 02:02 119/64 08/16/22 02:00 63 15 96 08/16/22 01:50 60 15 95 08/16/22 01:40 66 16 94 08/16/22 01:30 60 15 95 08/16/22 01:20 57 L 15 95 08/16/22 01:10 61 15 95 08/16/22 01:00 60 15 93 08/16/22 01:00 101/59 L 08/16/22 00:50 56 L 15 97 08/16/22 00:40 62 15 94 08/16/22 00:30 62 15 94 08/16/22 00:20 59 L 20 95 08/16/22 00:10 63 15 94 08/16/22 00:00 62 15 95 08/16/22 00:00 101/61 08/15/22 23:50 61 15 95 08/15/22 23:40 59 L 15 96 08/15/22 23:30 60 15 96 03 23:20 62 15 94 03 23:10 60 22 95 08/15/22 23:00 60 28 H 95 08/15/22 23:00 109/66 08/15/22 22:50 71 22 96 03 22:40 58 L 18 96 03 22:30 58 L 17 94 08/15/22 22:20 62 16 93 08/16/22 01:45 36.6 C 08/16/22 00:00 62 08/15/22 22:10 68 13 95 08/15/22 22:01 95/63 L 08/15/22 22:01 60 24 95 08/15/22 22:00 68 17 96 08/15/22 21:50 60 20 95 08/15/22 21:40 62 16 94 08/15/22 21:30 59 L 16 94 08/15/22 21:20 60 15 95 08/15/22 21:10 60 17 95 08/15/22 21:00 64 20 95 08/15/22 21:00 119/74 08/15/22 20:50 70 14 96 08/15/22 20:40 64 20 95 08/15/22 20:30 63 16 95
--- NOTE | 2022-08-16 08:30 | Discharge Summary ---
Date of Service August 16, 2022 Admission HPI Per Admitting Provider Name: KARLA JUNG Patient Number: [id number] : 1960 Date of Service: 07/27/2022 Chief Complaint: _New patient consultation for carotid stenosis HPI: _Ms. Jung is a middle-aged female who presents to Dr. Wilkes's vascular surgery clinic today as a new patient in consultation for right ICA stenosis noted on recent imaging. Patient states that she saw her mix maker last year, who ordered a carotid ultrasound which noted some mild to moderate stenosis. She is that she was sent for reevaluation more recently and was advised that it was significantly different than the previous test. She was then sent for a CTA of the neck to further evaluate. This demonstrated a significant stenosis and she was referred to our office for evaluation. Patient does admit some mild lower extremity edema, particularly since undergoing her knee replacements. She also states to having some occasional posterior neck and headaches. Patient denies any symptoms of cerebrovascular insufficiency, including amaurosis, extremity weakness numbness or tingling, difficulty speaking or swallowing, facial droop, sudden onset confusion. She also denies fevers, chest pain, shortness of breath, abdominal pain, nausea, vomiting, rest pain, claudication, nonhealing wounds or ulcers, other complaints. Review of systems: Total of 14 systems were reviewed and are negative aside from what is related in her HPI. Imaging: Ultrasound imaging performed [facility] on 06/07/2022 demonstrates 80 to 99% stenosis of her right ICA, with end-diastolic velocities of over 100 cm/s. CTA performed at [facility] on 06/19/2022 demonstrates 90% stenosis of her right ICA. Current Home Meds: (Last Updated 07/27 10:07) acetaminophen (Tylenol 500 mg oral tablet) 1,000 mg PO q6h PRN: as needed for pain aspirin (aspirin 325 mg oral delayed release tablet) 325 mg PO Daily atorvastatin (atorvastatin 40 mg oral tablet) 40 mg PO Daily clopidogrel (Plavix 75 mg oral tablet) 75 mg PO Daily eszopiclone (eszopiclone 2 mg oral tablet) 2 mg PO qhs PRN: as needed for insomnia ferrous sulfate (Feosol 325 mg (65 mg elemental iron) oral tablet) 325 mg PO Daily furosemide (furosemide 20 mg oral tablet) 20 mg PO Daily glipiZIDE (glipiZIDE 5 mg oral tablet) 5 mg PO bid losartan (losartan 50 mg oral tablet) 50 mg PO Daily metoprolol (metoprolol succinate 100 mg oral tablet, extended release) 100 mg PO qhs omega-3 polyunsaturated fatty acids (EPA Fish Oil 1000 mg oral capsule) 2 cap po bid pantoprazole (pantoprazole 40 mg oral delayed release tablet) 40 mg PO Daily semaglutide (Ozempic (1 mg dose) 4 mg/3 mL subQ pen) 1 mg subQ q7days spironolactone (spironolactone 50 mg oral tablet) 50 mg PO Daily Allergies and Sensitivities: cephalosporins(Unknown) penicillin(Unknown) Past Medical History: Problems: Carotid stenosis, right Heart murmur Hypertension Type 2 diabetes mellitus Chronic kidney disease Arthritis Insomnia Anemia Hyperlipidemia Varicose veins Surgical history: Positive for cholecystectomy, shoulder arthroscopy, total hysterectomy, leg surgery, foot surgery, bilateral total knee arthroplasties, varicose vein surgery Family history: Father with CVA and abdominal aortic aneurysm requiring surgical repair. Patient states that she underwent an ultrasound for screening about 2 years ago which was negative for aneurysm. Her family history is also positive for kidney disease, cancer, hypertension, coronary disease. Social history: Patient is a lifelong non-smoker. She has an alcoholic beverage once or twice per month. She denies any illicit drug use. OBJECTIVE Vitals: Last Updated 07/27/22 09:13 Date Temp BP Location Pulse RR SpO2 Pain 07/27/22 126/74 Right Arm 07/27/22 126/74 Left Arm 82 97 07/27/22 0 Vital Signs are the last 3 documented. No Orthostatic Data Available Height and Weight: Last Updated 07/27/22 09:12 Date BMI Wt(kg) Wt(lb) Method Ht(cm) (ft-in) Method 07/27/22 96.8 213 Standing Scale Heights and Weights are the last 3 documented. Physical Exam Constitutional: In general patient is a overweight but healthy-appearing well- nourished well-developed middle-aged female in no distress. She is alert and oriented without any focal deficits. Her neck is supple nontender with a midline trachea. She does have a faint bruit over the right side. Her heart is regular with a systolic ejection murmur. Her lungs are clear throughout. Her abdomen is soft nontender with normoactive bowel sounds all 4 quadrants. Brachial radial and femoral pulses are +3. Lower extremity distal pulses are +2. She does have well-healed anterior knee surgical scars. She has +1 to +2 edema of the lower extremities. ASSESSMENT: _ PLAN: _ 1 ) _right internal carotid artery stenosis Patient is asymptomatic from the severe right ICA S noted on her ultrasound as well as the CTA. Procedures for surgical correction of this were discussed with the patient due to her significantly increased risk of CVA, including carotid endarterectomy versus transcarotid artery revascularization. Both procedures were discussed at length with the patient including the risks benefits and alternatives to each. Patient elects to proceed with TCAR on the right carotid artery. The procedure risks benefits and alternatives were discussed with the patient by myself at Dr. Wilkes's request. Patient expresses understanding and agreement to proceed. This will occur at the patient's convenience. She is already taking statin medication as well as 325 mg aspirin daily, we will add Plavix to this regimen in preparation for her stenting procedure. Patient is aware that she will require this medication for 1 year postoperatively. Thank you for letting us participate in the care of this patient. Signature Line Electronic Signature on File CC: Estefania Hamm, [place] [id number] * CC: Gladis Carreon, [place] [id number] * Electronically Reviewed/Signed by: Fawn Cain PA-C Author Signature Dt/Tm:07/27/2022 03:04 PM [facility] [address] [id number] Electronically Reviewed/Signed by: MD Malinda Yap Signature Dt/Tm: 07/28/2022 08:42 AM Consulting Services Manager [employer] [facility] [address] [address] LM Result Type: HVI Outpt Note Date of Service: July 27, 2022 14:54 EST Authorization Status: Final Author or Import Date: MARIANO Cain Lynn on July 27, 2022 15:04 EST Verified By: MD Chung, Mane Roberts on July 28, 2022 08:42 EST Encounter info: [id number], [facility], Clinic, 07/27/2022 - 07/27/2022 Admission Exam Per Admitting Provider Constitutional: In general patient is a overweight but healthy-appearing well- nourished well-developed middle-aged female in no distress. She is alert and oriented without any focal deficits. Her neck is supple nontender with a midline trachea. She does have a faint bruit over the right side. Her heart is regular with a systolic ejection murmur. Her lungs are clear throughout. Her abdomen is soft nontender with normoactive bowel sounds all 4 quadrants. Brachial radial and femoral pulses are +3. Lower extremity distal pulses are +2. She does have well-healed anterior knee surgical scars. She has +1 to +2 edema of the lower extremities Principal Diagnosis Right internal carotid artery stenosis, post transcarotid artery revascularization Discharge Exam Constitutional well developed and well nourished Neck trachea midline Respiratory normal respiratory effort; no respiratory distress Cardiovascular Rate/Rhythm: regular rate and regular rhythm Gastrointestinal (Abdomen) Inspection/Auscultation: abdomen normal to inspection Percussion/Palpation: abdomen soft Musculoskeletal no cyanosis or clubbing, extremities motor strength 5/5 Skin + incision (incision dry and clean, slight ecchymosis, no swelling) Neurologic CN's II-XI intact bilaterally, normal sensation to monofilament and moves all extremities Psychiatric Orientation: alert and oriented x 3 Discharge Data Allergies Allergy/AdvReac Type Severity Reaction Status Date / Time Cephalosporins Allergy Unknown Unknown Verified 08/02/22 14:37 Penicillins Allergy Unknown Unknown Verified 08/02/22 14:37 Consultations 08/15/22 12:04 Consult Mold Dumper Routine Procedures Performed Operation Date: 08/15/22 08:00 Actual Procedures p Right Transcarotid Artery Revascularization(Right) - Mane Wilkes MD Ordered Studies 08/15/22 07:14 EV angio carotid cerv RT Routine US EV guide vascular access Routine sono, invasive monitoring [US point of care ultrasound] Stat Hospital Course (1) Internal carotid artery stent present: Patient POD 1 from right tcar procedure. Doing well. Neuro intact. D/C home today. Total Time Total Time Spent Total Time Spent (In Minutes): 0 Discharge Plan Discharge Items Reason For Visit: Right Internal Carotid Artery Stenosis Discharge Diagnosis: Right internal carotid artery stenosis, post tcar Activity: Per Instructions section Bathing Comment: may shower starting tomorrow Follow-up/Referrals: Gladis Carreon DO [Primary Care Provider] - Diet: Carb Consistent or DM2 and Heart Healthy Addtl Attending Provider Instructions: SPECIAL CARE INSTRUCTIONS: Medications: * Continue to take Aspirin, plavix, and statin as directed. Do not stop for 30 days. If you are told to stop any of these, call our office first. Incision Care: * You may shower, but do not rub incision. You may let the warm soapy water run over it. Be sure to dry the incision well after bathing. * Do not shave directly over the incision until it is healed. * DO NOT IMMERSE THE INCISION IN A TUB/POOL/etc. UNTIL HEALED. Restrictions: * Do not drive for at least one week or if you are still taking any narcotic pain medication. * Do not lift anything heavier than a gallon of milk for one week after going home. Possible Complications: * Numbness - It is normal to have some numbness around the incision. Numbness can extend beyond the incision to areas of the neck, ear and face. The numbness is due to bruising of nerves during the surgery and will gradually improve over a period of months. * Hoarseness/Difficulty Speaking and Swallowing - The bruising of nerves in the neck can also cause a hoarse voice, difficulty speaking or swallowing. This may improve over time, HOWEVER, if it continues for more than a few days please contact our office ([phone]). * Excessive Swelling - There will be some swelling immediately after surgery which usually resolves within one week. If you notice that the swelling is getting worse, notify your surgeon ([phone]). * Drainage/Bleeding - If there is any drainage or bleeding, it should be a very small amount (less than a teaspoon per day). If you have excessive bleeding or drainage from the incision, call your surgeon ([phone]) right away. ACTIVATION OF EMERGENCY MEDICAL SYSTEM: Call 911, immediately, if you experience any of the following: Warning Signs and Symptoms of Stroke: * Sudden numbness or weakness of the face, arm or leg, especially on one side of the body * Sudden confusion, trouble speaking or understanding * Sudden trouble seeing in one or both eyes * Sudden trouble walking, dizziness, loss of balance or coordination * Sudden severe headache with no cause Do not delay calling 911 if you experience any warning signs or symptoms of a stroke. Delay in seeking medical attention may affect what treatments can be given to you. Risk Factors for Stroke: You can reduce your chances of stroke by working with your medical provider to adopt a healthy lifestyle. Some specific ways to lower your chance of stroke are: * If you are a smoker, now is the time to stop smoking cigarettes * If you are diabetic, improve the control of your blood sugars * Avoid excessive amounts of alcohol * Control high blood pressure * Lose weight if you are overweight * Be sure to lead an active lifestyle * Eat a healthy diet low in salt, cholesterol and fat You should know about other risk factors for stroke that you are unable to control. These include: * Age 55 years or older * Male gender * Certain racial groups: , or / * Family History of Stroke, Mini stroke or Heart Attack * Sickle Cell Disease You will be receiving a call from the Vascular Surgery Nurse after you are discharged. FOLLOW UP VISIT: It is important for you to keep your follow up appointments with your medical provider. Keep any scheduled doctor appointments. Call [phone] to schedule a follow up appointment if one not already scheduled. Pending Studies at Discharge: No Stand-Alone Forms: My [facility], Smoking Cessation Medications and DC Order Prescriptions: New oxycodone-acetaminophen [Percocet] 5-325 mg tablet 1 tab PO Q6H PRN (Reason: pain) Qty: 14 0RF Continued losartan 50 mg Tablet 50 mg PO QAM atorvastatin 40 mg Tablet 40 mg PO HS aspirin 325 mg Tablet 325 mg PO QAM metoprolol tartrate 100 mg Tablet 100 mg PO HS clopidogrel [Plavix] 75 mg Tablet 75 mg PO QAM pantoprazole 40 mg Tablet,Delayed Release (Dr/Ec) 40 mg PO QAM ferrous sulfate [FeroSul] 325 mg (65 mg iron) Tablet 325 mg PO QAM furosemide 20 mg Tablet 20 mg PO QAM glipizide 5 mg Tablet 5 mg PO BID spironolactone 50 mg Tablet 50 mg PO QAM Fish Oil 1,000 mg Capsule 2 cap PO BID Vitamin D (with calcium) 77-400 mg-unit Tablet 1 tab PO QAM eszopiclone [Lunesta] 2 mg Tablet 2 mg PO HS PRN (Reason: Sleep) Ozempic 1 mg/dose (2 mg/1.5 mL) Pen Injector 1 mg SUBCUT WK Rx Instructions: clindamycin HCl 300 mg Capsule 600 mg PO UD Rx Instructions: prior to dental procedures Admission Data Admit Date/Time: 08/15/22 07:30 Attending Provider: Mane Wilkes Admit Provider: Mane Wilkes Primary Care Provider: Gladis Carreon Other Providers: Jason Escobar ; Eric Choe ; Mo Armas ; Troy Glez ; Jose Raul Prado ; Foreign Garcia ; Alphonse Chester ; Costa Bentley ; Diamond [place]
--- NOTE | 2022-08-16 08:38 | Critical Care Progress Note ---
Date of Service August 16, 2022 Assessment & Plan (1) Carotid artery stenosis: (2) Diabetes: (3) GERD (gastroesophageal reflux disease): (4) HTN (hypertension): (5) Chronic kidney disease: (6) Hyperlipidemia: (7) Anemia: (8) Arthritis: (9) Insomnia: Plan Reason: Critically Ill, 62 year old female with history of right carotid stenosis, heart murmur, HTN, T2DM, CKD, arthritis, insomnia, anemia, HLD, and varicose veins who presented for TCAR (right) with Dr. Wilkes and is now admitted to ICU for post-procedure care. Procedure was performed today at 9 AM and there were no complications. Neuro - No acute issues, Insomnia * CAM ICU: Neg * Sedation: None, s/p anesthesia * Analgesia: Percocet * Insomnia: Home Lunesta ordered Cardiac - Hypertension, Hx of Heart Murmur, Hyperlipidemia * Hx of HTN: continue Losartan 50 mg qAM, Spirinolactone 50mg qAM, Metoprolol 100 mg HS, and Furosemide 20 mg QAM * Echocardiogram 2020: EF 55-60%, mild aortic valve sclerosis, mild mitral valve thickening and annular calcification, normal pulmonic and tricuspid valves, trace tricuspid/mitral/pulmonary insufficiency * TCAR 08/15 w/o complication: BP management per vascular surgery protocol, has remained well controlled * Heart Murmur: chronic systolic murmur, undifferentiated, no supporting information from recent 2020 Echo (per patient) * Hyperlipidemia: Continue home statin Respiratory - No acute issues or chronic history * Currently oxygenating well on room air w/o dyspnea or pleuritic pain GI - GERD * Hx of GERD: continue home Pantoprazole 40 mg qAM * Heart health/Carb consistent diet ordered Renal/Electrolytes - Mild hyponatremia, CKD * Hyponatremia: yesterday 135, electrolytes otherwise unremarkable * BUN 36/ Cr 1.59/ GFR 34 (unknown baseline) * IVF discontinued * Replace electrolytes PRN - No acute concerns * Independent voids (unmeasured) * Good PO intake ENDO - T2DM * T2DM: Managed at home with Glipizide 5 mg BID and Semaglutide injections 1 mg weekly * Follow ICU hyperglycemic protocols HEME - No acute concerns, hx of Anemia * Recent endovascular surgery * No recent CMP * Will monitor for any drops/acute bleeding in setting of recent surgery ID - Post Surgical Ppx * No concerns for infection at this point * Patient remains afebrile * Prophylactic Clindamycin per vascular surgery INTEGUMENTARY - Endovascular surgical site * Surgical site clean and dry w/ appropriate hemostasis LINES/IV ACCESS * L radial a-line intact DVT PROPHYLAXIS * Held in setting of recent endovascular procedure * Continue Aspirin and Clopidogrel DISPO: Patient stable for downgrade from ICU, anticipate discharge by vascular surgery team today. Thank you for allowing us to be part of this patient's care. Please refer to Dr. Chester's documentation for any further recommendations Admission and Anticipated Discharge Date Admission Date: August 15, 2022 Supervising Physician Co-Signing Physician Notes Dr. Hollingsworth was the resident-physician during care of patient. I separately evaluated patient for oconnell portions of the history and the exam. I was present during the critical portion of medical decision making, and I discussed the case with the resident. I generally agree with the findings and plan except for any additions/exceptions noted. Patient seen and examined at bedside. No acute distress, no adverse events overnight Denies any headache, no nausea, no vomiting Fair appetite. No shortness of breath Urinating well Constitutional: No acute distress HEENT: EOMI, PERRLA, right suprasternal anterior neck scar present Respiratory system: Good air entry bilaterally, no wheeze, no rhonchi, no crackles CVS: S1-S2 positive, 2 out of 6 systolic murmur appreciated best at aorta Abdomen: Soft, nontender, nondistended, positive bowel sounds x4 Extremities: +2 pulses bilaterally radialis/ dorsalis pedis, no cyanosis, no edema Neuro: Awake alert oriented x3, cranial nerves II to XII grossly intact Psych: Normal mood and affect G/U: No Farah --Prophylaxis VTE: IPC GI: Pantoprazole Lines: Peripheral, left radial Diet: Cardiac Plan: DC A-line Discharge planning as per vascular surgery Please note the above document was generated using voice recognition software. It may contain grammatical, syntax or spelling errors.Any formal questions or concerns about the content, text or information contained within the body of thi s dictation should be directly addressed to the provider for clarification. Saw Rao is a 62 year old female with history of right carotid stenosis, heart murmur, HTN, T2DM, CKD, arthritis, insomnia, anemia, HLD, and varicose veins who presented for TCAR (right) with Dr. Wilkes and is now admitted to ICU for post- procedure care. Procedure was performed today at 9 AM and there were no complications. Patient notes that she is feeling well and is only in mild discomfort at the incision site. She notes that the discomfort in her throat has completely resolved. Patient denies any chest pain, dyspnea, abdominal pain, headaches, lightheadedness, vision changes, or lower extremity discomfort. She notes that she is urinating independently and has been up to use the toilet regularly, she is passing gas at this time. Medications: Reviewed Allergies: Reviewed (Cephalosporins, Penicillins) Review of Systems Review of Systems: As per HPI Physical Exam Physical Exam: Gen: NAD, alert, interactive HEENT: Supple, no LAD, no thyromegaly, no JVD Neck: Surgical bandage intact, surrounding superior ecchymosis, clean and dry w/o erythema or purulence Resp:Non-labored, no wheezing/rhonchi/rales, CTAB CV:RRR, normal S1/S2, systolic murmur inaudible (patient upright), no rubs or gallops Abd: Soft, non-distended, no TTP, normoactive bowels, no masses Extr: 2+ dp bilaterally, no edema Skin: No rashes lesions or erythema Results & Data Results & Data Vital Signs (Past 12 Hours) Vital Signs Temp Pulse Resp BP Pulse Ox O2 Del Method 08/16/22 08:15 73 22 96 08/16/22 08:00 69 16 94 08/16/22 07:45 77 19 94 08/16/22 07:30 65 19 97 08/16/22 07:15 57 L 15 95 08/16/22 07:00 61 13 96 Room Air 08/16/22 07:00 110/59 L 08/16/22 06:52 66 08/16/22 06:20 67 14 96 08/16/22 06:10 70 15 96 08/16/22 06:00 63 15 92 08/16/22 06:00 113/71 08/16/22 05:50 56 L 15 96 08/16/22 05:40 57 L 15 94 08/16/22 05:30 55 L 14 95 08/16/22 05:20 56 L 15 95 08/16/22 05:10 60 14 94 03/22/23 05:00 61 16 94 08/16/22 05:00 97/58 L 08/16/22 04:50 67 14 95 08/16/22 04:40 75 21 96 08/16/22 04:30 58 L 5 L 96 08/16/22 04:20 65 15 94 08/16/22 04:10 55 L 14 95 08/16/22 04:01 65 16 98 08/16/22 04:01 96/55 L 08/16/22 04:00 59 L 14 96 08/16/22 03:50 56 L 14 96 08/16/22 03:40 67 15 92 08/16/22 03:30 54 L 14 97 08/16/22 03:20 59 L 16 94 08/16/22 03:10 67 11 L 94 08/16/22 03:01 113/52 L 08/16/22 03:01 73 17 94 08/16/22 03:00 64 17 95 08/16/22 02:50 61 15 96 08/16/22 02:40 59 L 18 95 08/16/22 02:30 60 17 96 08/16/22 02:20 62 14 97 08/16/22 02:10 61 17 96 08/16/22 02:02 65 17 96 08/16/22 02:02 119/64 08/16/22 02:00 63 15 96 08/16/22 01:50 60 15 95 08/16/22 01:40 66 16 94 08/16/22 01:30 60 15 95 08/16/22 01:20 57 L 15 95 08/16/22 01:10 61 15 95 08/16/22 01:00 60 15 93 08/16/22 01:00 101/59 L 08/16/22 00:50 56 L 15 97 08/16/22 00:40 62 15 94 08/16/22 00:30 62 15 94 08/16/22 00:20 59 L 20 95 08/16/22 00:10 63 15 94 08/16/22 00:00 62 15 95 03 00:00 101/61 08/15/22 23:50 61 15 95 08/15/22 23:40 59 L 15 96 08/15/22 23:30 60 15 96 03 23:20 62 15 94 03 23:10 60 22 95 0321/23 23:00 60 28 H 95 08/15/22 23:00 109/66 08/15/22 22:50 71 22 96 08/15/22 22:40 58 L 18 96 08/15/22 22:30 58 L 17 94 08/15/22 22:20 62 16 93 08/16/22 01:45 36.6 C 08/16/22 00:00 62 08/15/22 22:10 68 13 95 08/15/22 22:01 95/63 L 08/15/22 22:01 60 24 95 08/15/22 22:00 68 17 96 08/15/22 21:50 60 20 95 08/15/22 21:40 62 16 94 08/15/22 21:30 59 L 16 94 08/15/22 21:20 60 15 95 08/15/22 21:10 60 17 95 08/15/22 21:00 64 20 95 08/15/22 21:00 119/74 08/15/22 20:50 70 14 96 08/15/22 20:40 64 20 95 Resident Activity Tracking Resident Involvement: Resident Care Provided Care Provided: Adult Hospital Medicine
[2022-08-16] MEDS ORDERED: CLOPIDOGREL BISULFATE 75 MG TAB PO SCH (09:00)
[2022-08-16] MEDS ORDERED: ASPIRIN 325 MG ECTAB PO SCH (09:00)
[2022-08-16] MEDS ORDERED: PANTOprazole 40 MG TAB PO SCH (09:00)
[2022-08-16] MEDS ORDERED: FERROUS SULFATE 325 MG TAB PO SCH (09:00)
[2022-08-16] MEDS ORDERED: LOSARTAN POTASSIUM 50 MG TAB PO SCH (09:00)
[2022-08-16] MEDS ORDERED: CALCIUM PHOS DIBAS VITAMIN D3 PO SCH (09:00)
--- NOTE | 2022-08-16 10:36 | Billing Data ---
Date of Service August 16, 2022 Coding Level of Care Code 36938 SUB INP/OBS CARE
--- NOTE | 2022-08-16 14:09 | Billing Data ---
Date of Service August 16, 2022 Coding Level of Care Code 48252 SUB INP/OBS CARE
== END 2022-08-16 10:47 | disposition home or self-care (01) | DRG 36 ==
LOC: ASU 05:43 → 1E 07:30
PROC: EV.TCAR (2022-08-15 08:00)